=== PATIENT | female | born 1960 | race Caucasian/White ===

== ENCOUNTER 2021-03-29 10:53 | Emergency (ER) | payer BC ==
--- OUTSIDE RECORDS SUMMARY | 2021-03-29 10:58 | XMS REPORT | Continuity of Care Document ---
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 Vallejo MD ALBUMIN LEVEL 2020-08-09 14:37:00 Kely Vallejo MD And erson ALKALINE PHOSPHATASE 2020-08-09 14:37:00 Kely Vallejo ALANINE AMINOTRANSFERASE 2020-08-09 14:37:00 Rich Vallejo MD ASPARTATE AMINOTRANSFERASE 2020-08-09 14:37:00 Melanie Vallejo MD TOTAL PROTEIN 2020-08-09 14:37:00 Kely Vallejo MD And erson FRACTIONATED BILIRUBIN 2020-08-09 14:37:[address] CHEST ABDOMEN PELVIS W 2020-08-08 18:05:00 Pasha Vallejo MD CONTRAST POC CREATININE 2020-08-08 16:54:00 Kely Vallejo MD And erson COMPREHENSIVE METABOLIC PANEL 2020-06-18 16:40:00 Oh, Lorenzo Ferguson HEMOGLOBIN A1C 2020-06-18 16:40:00 Oh, Lorenzo Ferguson LIPID PANEL 2020-06-18 16:40:00 Oh, Lorenzo Ferguson VITAMIN D 25 HYDROXY LEVEL 2020-06-18 16:40:00 Oh, Lorenzo Ferguson THYROID STIMULATING HORMONE 2020-06-18 16:40:00 Oh, Lorenzo Ferguson FREE THYROXINE 2020-06-18 16:40:00 Oh, Lorenzo Ferguson GLUCOSE LEVEL 2020-06-18 16:40:00 Oh, Lorenzo Ferguson ELECTROLYTE PANEL 2020-06-18 16:40:00 Oh, Lorenzo villalta SERUM CREATININE 2020-06-18 16:40:00 Oh, Lorenzo Ferguson .GLOMERULAR FILTRATION RATE 2020-06-18 16:40:00 Oh, Lorenzo Ferguson CALCIUM LEVEL TOTAL 2020-06-18 16:40:00 Oh, Lorenzo Palmer son ALBUMIN LEVEL 2020-06-18 16:40:00 Oh, Lorenzo Ferguson ALKALINE PHOSPHATASE 2020-06-18 16:40:00 Oh, Lorenzo Cade rson ALANINE AMINOTRANSFERASE 2020-06-18 16:40:00 Oh, Lorenzo Ferguson ASPARTATE AMINOTRANSFERASE 2020-06-18 16:40:00 Oh, Lorenzo Ferguson TOTAL PROTEIN 2020-06-18 16:40:00 Oh, Lorenzo Ferguson FRACTIONATED BILIRUBIN 2020-06-18 16:40:00 Oh, Lorenzo Blair derson BLOOD UREA NITROGEN 2020-06-18 16:40:00 Oh, Lorenzo DIALLO Spencer son MRI CERVICAL THORACIC LUMBAR 2020-05-11 14:41:29 Kely Vallejo MD SPINE W WO CONTRAST NM BONE SCAN WHOLE BODY 2020-05-10 15:05:10 Sonia Vallejo MD MRI PELVIS W WO CONTRAST - 2020-05-09 17:06:00 Melanie Vallejo MD MUSCULOSKELETAL CIRCULATING TUMOR CELLS 2020-05-08 17:12:[address] CHEST ABDOMEN PELVIS W 2020-05-04 16:25:35 Mya Vega MD CONTRAST POC CREATININE 2020-05-04 15:00:00 Mya Vega MD COMPLETE BLOOD COUNT W/ 2020-05-04 14:29:00 Mya Vega MD DIFFERENTIAL COMPREHENSIVE METABOLIC PANEL 2020-05-04 14:29:00 Mya Vega MD CANCER ANTIGEN 15-3 2020-05-04 14:29:00 Mya Vega MD And erson Results CBC 2020-05-04 14:29:00 Mya Vega MD MANUAL DIFFERENTIAL 2020-05-04 14:29:00 Mya Vega MD And erson GLUCOSE LEVEL 2020-05-04 14:29:00 Mya Vega MD ELECTROLYTE PANEL 2020-05-04 14:29:00 Mya Vega MD Spencer son SERUM CREATININE 2020-05-04 14:29:00 Mya Vega MD [place] .GLOMERULAR FILTRATION RATE 2020-05-04 14:29:00 Mya Vega MD CALCIUM LEVEL TOTAL 2020-05-04 14:29:00 Mya Vega MD And erson ALBUMIN LEVEL 2020-05-04 14:29:00 Mya Vega MD ALKALINE PHOSPHATASE 2020-05-04 14:29:00 [facility] ALANINE AMINOTRANSFERASE 2020-05-04 14:29:00 Mya Vega ASPARTATE AMINOTRANSFERASE 2020-05-04 14:29:00 Mya Vega MD TOTAL PROTEIN 2020-05-04 14:29:00 Mya Vega MD FRACTIONATED BILIRUBIN 2020-05-04 14:29:00 Mya Vega MD BLOOD UREA NITROGEN 2020-05-04 14:29:00 Mya Vega MD And erson PROTEIN / CREATININE RATIO 2020-05-04 14:03:00 Cornel Brian URINE URINALYSIS WITH MICROSCOPIC 2020-05-04 14:03:00 Cornel Brian MD IF INDICATED Encounters Start End Encounter Admission Attending Care Care Encounter Source Date/Time Date/Time Type Type Clinicians Facility Department ID 2021-03-25 2021-03-25 Outpatient LORENZO CUEVAS [facility] [id number] 12:19:20 23:59:00 Sachin o n 2021-03-25 2021-03-25 Outpatient LORENZO CUEVAS [place] MDA [id number] 14:13:04 15:49:38 Sachin o n 2021-03-21 2021-03-21 Outpatient LUNA VEGA MDA MDA [id number] 11:06:36 11:35:59 MYA Sachin o n 2021-02-22 2021-02-22 Outpatient LUNA EVGA MDA MDA [id number] 10:58:50 11:31:29 MYA Sachin o n 2020-05-09 2020-05-09 Outpatient LUNA ART MDA [id number] 00:00:00 00:00:00 BACILIO Sachin o n 2020-03-08 2020-03-08 Outpatient LUNA CARRANZA MDA MDA [id number] 09:20:19 09:39:57 CAROLENELY Espinalers o n 2020-02-27 2020-02-27 Outpatient LUNA VEGA MDA MDA [id number] 09:02:27 09:45:16 MYA Sachin o n 2020-02-20 2020-02-20 Outpatient LORENZO CUEVAS MDA MDA [id number] 11:39:43 12:14:32 Sachin o ambar Results Test Description Test Time Test Comments Results Result Comments Source Hemoglobin A1c 2021-03-25 18:29:57 Test Item Value Reference Range Interpretation Comme nts A1C (test code = 4632) 5.4 % 4.3-5.6 HbA1c values >=6.5% are diagnostic of diabetes mellitus.Diagno sis should be confirmed by repeat testing. Therapeutic Action suggested: >8.0% HbA1c; Go al oftherapy: <7.0% HbA1c MD FergusonComplete Blood Count w/o [id number] 18:09:28 Test Item Value Reference Range Interpretation Comments WBC (test code = 4.0 K/uL 4.0-11.0 6690-2) RBC (test code = 789-8) 1.92 See_Comment L [Au tomated message] The system [employer] generated this result transmitted ref erence range: 4.00 - 5 .50 M/uL. The refer ence range was not u sed to interpret this result as normal/abnor mal. Hgb (test code = 718-7) 8.7 See_Comment L [Au tomated message] The system [employer] generated this result transmitted ref erence range: 12.0 - 1 6.0 gm/dL. The refe rence range was not u sed to interpret this result as normal/abnor mal. Hct (test code = 25.5 % 37.0-47.0 L 4544-3) MPV (test code = 787-2) 9.5 fL 4.0-10.4 H MCH (test code = 785-6) 45.3 pg 27.0-31.0 H MCHC (test code = 34.1 See_Comment [Automate d message] 786-4) The system [employer] generated this result transmitted ref erence range: 31.0 - 3 6.0 gm/dL. The refe rence range was not u sed to interpret this result as normal/abnor mal. RDW-SD (test code = 68.5 fL 35.1-46.3 H 76082-2) RDW-CV (test code = 14.1 % 12.0-15.5 788-0) Platelet count (test 43 K/uL 140-440 L code = 777-3) INRBC (test code = 0.0 % See_Comment The INRBC (instrument 5974) NRBC) value ref lects the enumeration of nucleated red b lood cells contained in a 200uL sampleof whole blood analyzed by the instrument. Thi s value maydiffer from the NRBC value repo rted in a manual differential,wh ich is based on a 100 cell differential. [Automated mess age] The system [employer] generated this result transmitted ref erence range: <=0.0. T he reference range was not used to int erpret this result as normal/abnormal . Lab Interpretation Abnormal (test code = 72783-9) MD Ferguso[id number] 16:13:04 Test Item Value Reference Range Interpretation Comments Total Cells (test code 100 As pa rt of = 7642) Differential performed at [facility], [address], [address], [place] [address] Neutrophil % (test code 59.0 % 42.0-66.0 The Neutrophil count = 6491) includes Bands. As part of Differe ntial performed at [facility] [address], [address] [facility] [place] [address] Lymphocyte % (test code 39.0 % 24.0-44.0 As p art of = 6194) Differential performed atAC[facility] [address]do[address] [facility] [address] [address] Monocyte % (test code = 1.0 % 2.0-7.0 L As p art of 6422) Differential performed at[facility] Khqp[address] [facility] [address] [place] [address],[place] [address] Basophil % (test code = 1.0 % 0.0-1.0 As p art of 5068) Differential performed at[facility] [employer] Fujf[address] [facility] [address] [address] Neutrophil Abs (test 2.42 K/uL 1.70-7.30 As part of code = 6492) Differential performed at[facility] [employer] Ewrq[address] [facility] [address], [address] [place] [address],[place] [address] Lymphocyte Abs (test 1.60 K/uL 1.00-4.80 As part of code = 6195) Differential performed at[facility] Sise[address] [facility] [address] [place] [address],[place] [address] Monocyte Abs (test code 0.04 K/uL 0.08-0.70 L As p art of = 6423) Differential performed atA [facility] [employer] Bqje[address] [facility] [address] [place] [address],[place] [address] Basophil Abs (test code 0.04 K/uL 0.00-0.10 As p art of = 5069) Differential performed at[facility] [employer] Qwhl[address] [facility] [address] [place] [address],[place] [address] RBC Morph (test code = Present Normal A As pa rt of 6942) Differential performed at[facility] [employer] Tlsx[address] [facility] [address], [address] [place] [address],[place] [address] PLT Morph (test code = Normal Normal As pa rt of 6646) Differential performed at[facility] [employer] Oxcz[address] [facility] [address], [address] [address] Anisocytosis (test code Present Not Present A As p art of = 4811) Differential performed [facility] [employer] [address] [address] Macrocyte (test code = Present Not Present A As pa rt of 6358) Differential performed [facility] [employer] [address] [address] Lab Interpretation Abnormal (test code = 01618-2) MD Ferguson.[id number] 16:13:02 Test Item Value Reference Range Interpretation Comments WBC (test code = 8034) 4.1 K/uL 4.0-11.0 RBC (test code = 6932) 2.18 See_Comment L [Aut omated message] The system [employer] generated this result transmitted ref erence range: 4.00 - 5 .50 M/uL. The refer ence range was not u sed to interpret this result as normal/abnor mal. Hgb (test code = 5898) 9.0 See_Comment L As pa rt of CBC or as an individual orderable testi ng performed at [facility], [address], [place] [address] [Automate d message] The sy stem which generated this result transmit damien reference range : 12.0 - 16.0 gm/dL. T he reference range was not used to int erpret this result as normal/abnormal . Hct (test code = 5860) 27.8 % 37.0-47.0 L As pa rt of CBC or as an individual orderable testi ng performed at [facility], [address], [place] [address] MCV (test code = 6222) 128 fL 82-98 H MCH (test code = 6220) 41.3 pg 27.0-31.0 H MCHC (test code = 6221) 32.4 See_Comment [Au tomated message] The system [employer] generated this result transmitted ref erence range: 31.0 - 3 6.0 gm/dL. The refe rence range was not u sed to interpret this result as normal/abnor mal. RDW-SD (test code = 65.5 fL 35.1-46.3 H 6972) RDW-CV (test code = 14.0 % 12.0-15.5 6971) Platelet count (test 54 K/uL 140-440 L As part of CBC or as code = 6832) an individual orderable testi ng performed at [facility], [address], [place] [address] MPV (test code = 6282) 10.5 fL 4.0-10.4 H INRBC (test code = 0.0 % See_Comment The INRBC (instrument 5974) NRBC) value ref lects the enumeration of nucleated red b lood cells contained in a 200uL sampleof whole blood analyzed by the instrument. Thi s value maydiffer from the NRBC value repo rted in a manual differential,wh ich is based on a 100 cell differential. A s part of CBC testing performed at [facility] [employer] [address], [place] [address] [Automated mess age] The system [employer] generated this result transmitted ref erence range: <=0.0. T he reference range was not used to int erpret this result as normal/abnormal . Lab Interpretation Abnormal (test code = 81315-7) MD Fernandez [id number] 16:00:17 Test Item Value Reference Range Interpretation Comments CA 15-3 (test code = 35.9 U/mL See_Comment H Results greater than 5170) 2400.0 U/mL may not be reliable due to matrix effect w ith extended diluti on as it exceeds the professional employer consultant's recommended wells it. Caution should be exercised when interpreting ragland ch values and done in conjunction wit h clinical context.Testing Performed at [facility], [address], [place] [address] [Automat ed message] The sy stem which generated this result transmit damien reference range : <=25.0. The ref erence range was not u sed to interpret this result as normal/abnor mal. Lab Interpretation Abnormal (test code = 20025-5) MD FergusonCT Chest Abdomen Pelvis with [id number] 22:10:06 No significant interval change in sclerotic bone lesions. Metabolic activity is best assessed with bone scan. Probable post radiation changes at the right lung apex are slightly increased relative to the previous study. Few new small subcentimeter pulmonary nodules including a more elongated nodular density may represent endobronchial filling defects but are nonspecific. Recommend close attention onfollow-up. Other findings as above. Interface, Radiology Results In - 02/04/2021 5:12 PM CDT FULL RESULT:Examination: CT CHEST ABDOMEN PELVIS W CONTRAST, 02/04/2021 2:48 PMClinical History: Infiltrating lobular carcinoma of upper outer quadrant of right female breastSecondary malignant neoplasm of axillary lymph nodeSecondary malignant neoplasm of boneSecondary malignant neoplasm of skinIndication: Breast cancer primary, metastatic to other regionComparison: 11/06/2020Technique: CT of the chest, abdomen, and pelvis was performed with intravenous contrast.Findings: Chest: Likely post radiation changes at the right lung apex are slightly increased relative to the prior study. Few new small subcentimeter pulmonary nodules (37, 77, 84 series 4). More posterior nodular density (77) has an elongated component. These may represent small endobronchial filling defects but are nonspecific. Recommend attention on follow-up. Stable small subcentimeter calcified granuloma in the left upper lobe (42).No enlarged thoracic lymph nodes. Surgical changes at the right axilla. Right mastectomy changes. Degenerative changes in the spine. No significant interval change in 0.9 cm faint sclerotic lesion at T10. This is slightly more prominent than on exam from 05/2019. Recommend close follow-up.Abdomen/Pelvis: Fatty infiltration of the liver. Stable hemangioma in the right liver. Gallbladder is unremarkable. Pancreas, spleen, and adrenals are unremarkable. No hydronephrosis.No enlarged para-aortic or pelvic lymph nodes. Calcification at the uterus may represent a fibroid. No dilated loops of bowel or ascites.No significant interval change in sclerotic lesions at L4 and in the pelvis.IMPRESSION:No significant interval change in sclerotic bone lesions. Metabolic activity is best assessed with bone scan.Probable post radiation changes at the right lung apexare slightly increased relative to the previous study. Few new small subcentimeter pulmonary nodulesincluding a more elongated nodular density may represent endobronchial filling defects but are nonspecific. Recommend close attention on follow- up.Other findings as above.MD FergusonWY Bone Scan Whole [id number] 19:00:28 Since November 05, 2020,1. More conspicuous tracer uptake in the right SI joint superiorly, probably metastasis. Recommend correlation with CT.2. No abnormal tracer uptake to correlate with known scleroticlesion in the left posterior bone, probably treated metastasis. Interface, Radiology Results In - 02/04/2021 2:02 PM CDT FULL RESULT:Examination: Whole-Body Bone Scan, 02/04/2021 1:10 PMClinical History: Breast cancerIndication: Restaging evaluation for osseous metastasisComparison: November 06, 2019Technique: Following the intravenous adminis tration of 22 mCi of technetium-99m MDP, anterior and posterior delayed whole body planar images were acquired.Findings: More conspicuous focus in the right SI joint superiorly, probably representing metastasis. The known sclerotic lesion in the left posterior bone without abnormal tracer uptake. Scattered degenerative change noted. Both kidneys and bladder visualized.IMPRESSION:Since November 05, 2020,1. More conspicuous tracer uptake in the right SI joint superiorly, probably metastasis. Recommend correlation with CT.2. No abnormal tracer uptake to correlate with known sclerotic lesion in the left posterior bone, probably treated metastasis.[facility]ST [facility] [id number] 18:48:03 Test Item Value Reference Range Interpretation Comments POC Crea (test code 1.6 mg/dL 0.6-1.3 H Medicati ons, = 11659-6) especially hydroxyurea or supplements, ragland ch as ascorbate, can interfere with test results causing a falsely and significantly h igher result than exp ected. If a problem is suspected with a patient's resul t, a sample should b e sent to the laborato for confirmatory te sting. Method descript ion: The i-STAT is a n analyzer used f or in vitro quantific ation of various anal ytes in whole blood. The device uses a s jayde disposable cart ridge which contains microfabricated sensors, a calibration parth ution, fluidics system , and a waste chamber . Each test cartridge contains chemic ally sensitive biose nsors on a [email or web address] ip that are config ured to perform spec ific tests. The microfabricated sensors measure analyte concent ration by an electroch emical assay. POC eGFR-AA (test 40 See_Comment L Normal eGF R >= 60 code = 60726-1) mL/min/1.73 m2 The eGFR is calcula damien using the CKD-E PI equation. The e GFR declines with a ge. eGFR <60 mL/min /1.73 m2 is considere d as "decreased" Thi s equation should only be used for pat ients 18 and older. According to th e National Kidney Foundation's dney Disease Outcome Quality Initiat natalia (KDOQI) classification and 2012 Kidney Dis ease Improving Globa l Outcomes (KDIGO ) Clinical Practi ce Guideline, the stage of CKD should b e categorized bas ed on estimated GFR. Stage Description GFR mL/min/1.73 m21 Kidney damage w ith normal or high GFR >=902 Kidney d amage with mild decre ase in GFR 60-893a Mild to moderate dec rease in GFR 45-5 93b Moderate to sev ere decrease in GFR 30-444 Severe decrease in GFR 15-295 Kidney f ailure <15 (or reyna lysis) [Automated mes franny] The system [employer] generated this result transmitted ref erence range: >=60 mL/min/1.73 m2. The reference range was not used to int erpret this result as normal/abnormal . POC eGFR-YANY (test 35 See_Comment L Normal eG FR >= 60 code = 55409-5) mL/min/1.73 m2 The eGFR is calcula damien using the CKD-E PI equation. The e GFR declines with a ge. eGFR <60 mL/min /1.73 m2 is considere d as "decreased" Thi s equation should only be used for pat ients 18 and older. According to th e National Kidney Foundation's dney Disease Outcome Quality Initiat natalia (KDOQI) classification and 2012 Kidney Dis ease Improving Globa l Outcomes (KDIGO ) Clinical Practi ce Guideline, the stage of CKD should b e categorized bas ed on estimated GFR. Stage Description GFR mL/min/1.73 m21 Kidney damage w ith normal or high GFR >=902 Kidney d amage with mild decre ase in GFR 60-893a Mild to moderate dec rease in GFR 45-5 93b Moderate to sev ere decrease in GFR 30-444 Severe decrease in GFR 15-295 Kidney f ailure <15 (or reyna lysis) [Automated mes franny] The system [employer] generated this result transmitted ref erence range: >=60 mL/min/1.73 m2. The reference range was not used to int erpret this result as normal/abnormal . POC Clean Dev (test Yes code = 6672) Performing Lab (test MDA Main Main Ca mpus code = 92992) [facility], [address] [place] [address]; [employer]: Gely Mejía MD Lab Interpretation Abnormal (test code = 97050-4) [facility] Specimen Collection -Bone [id number] 15:20:42 Test Item Value Reference Range Interpretation Comments Flow Cytometry Yes Test performe d (Received) (test by:[facility] ersity code = 8319) of [facility] HarrisonFlow Cytometry [address] [place] [address] Cliffgiovany Ap Link [id number] (test code = 80130) DESEAN (test code = Morning of DESEAN) 12/28/20 or 01/03/21Premedicati on type:->NoneAspira tion laterality:->Unil ateralBiopsy laterality:->Unil ateralProcedure type:->AspiratePr ocedure type:->BiopsyProc edure type:->ClotSelect the Bone Marrow Stains:->GiemsaSe lect the Bone Marrow Stains:->IronSele ct the Bone Marrow Stains:->Reticuli n/Trichrome [facility] CenterCytogenetics Specimen Collection -Bone [id number] 16:27:12 Test Item Value Reference Range Interpretation Comments Ariela Ap Link (test code [id number] = 48071) Cytogenetics (Received) Yes (test code = 8304) DESEAN (test code = DESEAN) Morning of 12/28/20 or 01/03/21Premedication type:->NoneAspiratio n laterality:->Unilate ralBiopsy laterality:->Unilate ralProcedure type:->AspirateProce dure type:->BiopsyProcedu re type:->ClotSelect the Bone Marrow Stains:->GiemsaSelec t the Bone Marrow Stains:->IronSelect the Bone Marrow Stains:->Reticulin/T richrome MD FergusonPeripheral Smear for Bone [id number] 13:36:29 Test Item Value Reference Range Interpretation Comments Peripheral Smear (test code = 4273) PSMEAR MD FergusonBonana marrow aspiration w/ [id number] 13:30:00AIMEE Garcia 12/28/2020 3:05 PM Procedure: Bone marrow aspiration/biopsy Date/Time: 12/28/2020 9:58 AM Provider Information:Performed by: Valentina Jolly, PAAuthorized by: Ulices Dudley MD Integrated Marketing Manager present: yesAssistant: Rosalina TanglerKing yoga instructor used?: yoga instructor not needed Patient Diagnosis:Pre-procedure diagnosis: Macrocytic anemiaPost-procedure diagnosis: unchanged Indication:Indication: evaluation of disease status Anesthesia:Anesthesia: local infiltration and see MAR for detailsPatient anesthetized by: advanced practice providerLocal anesthetic: lidocaine 1% without epinephrineAnesthetic total (ml): 20 Sedation:Patient sedated?: patient not sedated Aspirate Site(s):Laterality: r ightSite location: posterior iliac crestInstrument(s) used: Doretha needleInstruments placed by: advanced practice provider Biopsy Site(s):Laterality: rightSite location: posterior iliac crestInstrument(s) used: Russell needleInstruments placed by: advanced practice provider Dressing:Dressing: compression bandage and gel foam Post-Procedure Patient Assessment:Patient tolerance: wellEstimated blood loss: noneComplications/Observations: no complications Discharge/Disposition:Discharge instructions: verbal, printed discharge instructions given to patient and patient verbalized understandingPatient discharged to: discharge to homeDisposition mode: ambulatory Sample Disposition:Testing performed: flow cytometry, cytogenetics and pathologyResearch samples(s): noAspirate volume obtained (mL) - right: 8Visual assessment for specimen adequacy - right: particlesVisual assessment for specimen adequacy - right: 2.4 (Collected)Specimen integrity - right: fragmented Comments:Hx of radiation tx in 2014 breast and sacrum.Currently on chemo treatment. Reviewed meds and allergies prior to the procedure. Reviewed risks and post instructions. Hemostasis achieved. No bleeding. No complications post procedure.MD FergusonMethylmalonic Acid Quant, [id number] 15:25:25 Test Item Value Reference Range Interpretation Comments MMA 0.3 nmol/mL See_Comment -----ADDITIONAL Quant-[place] INFORMATION---- T (test code his test was de jaquelind and its = 83107-0) performance characteristics determined by [facility] in a manner consistent with CLIArequirement s. This test has not been cleare d or approved bythe U.S. Food and Drug Administration. Test Performed by:[address] [address]X[place] Direct or: Romaine Meneses M.D. Ph. D.; CLIA# [id number] [Au tomated message] The system [employer] generated this result transmit damien reference range: <=0.40. The reference range was not u sed to interpret this result as normal/abnormal. MD FergusonParietal Cell IgG [id number] 00:20:28 Test Item Value Reference Range Interpretation Comments Parietal IgG-Ward 14.9 See_Comment Test Perf ormed by:[place] (test code = 92575-6) [facility] Super i[address] [id number] Super [employer] [place], [place] [address]Csw Director: Guanaco Meneses M.D. Ph. D.; CLIA# [id number] [Au tomated message] The sy stem which generated this result transmitted ref erence range: <=20.0 ( Negative) Units. The refe rence range was not used to interpret this result as normal/abnormal . MD FergusonCopsky [id number] 19:53:48 Test Item Value Reference Interpretation Comments Range Copper Lvl-Ward 1.72 See_Comment H --------ADDITIONA (test code = L 5631-7) INFORMATION---- -This test was developed and its performance characteristics determined by [facility] in a manner consistent with CLIArequirement s. This test has not been cl eared or approved bythe U.S. Food and Drug Administra tion. Test Performed by:Darby seay [facility] [address] [place], [place] [address]Sap Direct or: Romaine Meneses M.D. Ph. D.; CLIA# [id number] [Au tomated message] The sy stem which generated this result transmitted ref erence range: 0.75 - 1.45 mcg /mL. The reference range was not used to interpret th is result as normal/abnormal . Lab Interpretation Abnormal (test code = 85829-4) MD FergusonIntrinsic Factor Blocking [id number] 15:24:58 Test Item Value Reference Range Interpretation Comments IF Ab-Ward (test Negative Negative Positive in 50% of persons code = 08023-0) with pernici ous anemia. Test Performed by:[facility] meQuilibrium ior [address]ier[address] meQuilibrium ior [employer] [place], [place] [address]Fou Director: Guanaco Meneses M.D. Ph. D.; CLIA# [id number] MD FergusonHomocysteine Oyrdv7025-68-02 14:20:02 Test Item Value Reference Range Interpretation Comments Homocysteine (test 12.3 See_Comment [Automat ed code = 5921) message] The system which generated this result transmitted reference range : <=15.0 mcmol/L. The reference range was not used to interpr et this result as normal/abnormal . DESEAN (test code = FASTINGThis lab DESEAN) cannot be scheduled at the following locations due to collection/procces sing restrictions:[facility] DIAG LAB [facility] DIAG LAB [facility] DIAG LAB [facility] MD FergusonReticulocyte Count, Vgxf3798-28-04 13:46:09 Test Item Value Reference Range Interpretation Comments Retic Cnt Auto (test code = 7199) 3.1 % 0.5-1.5 H RETHE (test code = 6973) 42.9 pg 23.2-37.5 H IRF (test code = 5989) 23.9 % 2.6-16.7 H Lab Interpretation (test code = Abnormal 63890-5) MD FergusonPeripheral [facility] [id number] 13:46:08 Test Item Value Reference Range Interpretation Comments Peripheral Smear (test code = 4273) ANGEL FergusonPathology Biopsy Kkyrrctywiungn8253-58-11 16:55:00 Test Item Value Reference Range Interpretation Comments Diagnosis (test code = 34) t6scyFBrRTCfdFV7McH bPHEpz6dqc6XwfARppR JrMCemoFAnnbEsdw81q XI0rN55AU4dQHZrEnK9 LJJgstH5Nxp1GJVeSMS wfRMiH769n8nmr2nhpe HkgXW2wSmcPQNhJAHfH DlzPXOtOwErPW4aWKAo hQ8zVKPma7MfmvWxvts rM52zv11cXoAzjMHnf7 u8pMK7FgalHnpwbUA5J trhGSDvFVx2VZKbN45u LBJ0FdErOWLvEZIlue1 wYVSnjiUdu56dUQj1mS NlsClrn4JaUbZqh9f8y FxwYXJ9 Gross Description (test j1ojfRMrUVGpkTZSXKK code = 8007161629) wMVxhbnNpXHNwbHRwZ3 ZdzsrrAAzkKY1aBR4zm VbbbVJdjBYuHP4MEZPa ZmYxXHBhcGVydzEyMjQ aOGMadEZoiKD8IHArLD 1hcmdsMTgwMFxtYXJnc zJ4JWZjhNJrN0CoCMZe MB0zlhzaAKF5NGlaxZ1 dxqYKYmhlPy7dkQXmoC tcZjFcZmNoYXJzZXQwX ZWoaCujPYAuDVj3rM6V RcaoYVR1UCMZPtxqRJS zAD0Hn8bePYYgaUDvOH S3TDvcoIToDXGvACScW Tk8NSGmKKnufHUdCU1v kSjoWfjuzKznt8BnjZP cXGlkIDUxMDAyIFxcZG EnCT7XUnAwKOQnIcU8Y HWpTZh8XTj2MZ0DWaBv VSMiKSo4Bwv2KfFsRSs 4ZHygDN8ODXioGUZ5KH q4KxF4NPN8TWJkVNAcO iBcXGYgQXJpYWwgXFxm cyAxMCBcXGZiIFxcZmw kKEokD30ekMllmS4zXh pszqIdGAC6FFTjwrGPH lxwbGFpblxlcGljTmVz dERvYzEgDQpcbHRycGF yXGxpbjBccmluMCANCl xsdHJjaFxiXGZzMjAgQ 31yw64qERJbN8LuDSbk HaDgn5zosmOxlW3ghB7 seXBzIHgyOlxiMCAgQ2 4qx1cyhJRes8BdWeC1Z R7nxBAsQSSoy4R1PEBp x5M1CAKcagCxwABblWM dfMNuf8MnjL0kXCWeTU FpYU5mYKPgINFgcY7oU mlsdGVyZWQsIGVudGly HWo1AOB5Ks3mqHGpUAP gchMWVV8vHSmtoc99SH W2f6vorQNfDJoqLpzmf XPwzmI2WRhUIHJRTXcA QbRmUR4tOPwWHsrHWRa JTnwyMTAxNnwxfFVTRV X9NKkwxTddaFr8r6ogn XJxg2t8AEliJPZ0sLdH u2dchOSvXNqhCusocJO amjR6PHlREXVILPpOLf BeTQ7nQAxJNnlOAzG1C hLrVID7XNdTN6ZIbKA3 Cpm2FIz1eZuoHcnszhH jmKCaMgZGkH6igYtlaM 6sjJQbN8gaKlMdEUKMC lxwbGFpblxlcGljTmVz qFZrJaJtrNxuwE05HEB lvQIdZRS3PX7aBAKxwf ieKVEaQISeFGA8WAirq P28zIHuWINmQAMnbWPt nF2DDKMsNDW6TTynnF9 2bHRcBL5KAXYyKXT4UQ UftVKgOLF0QC2mwJ6Qs Q== Disclaimer (test code = f4kylUKdPJRevRRkMzG 9844) dMGBiRQHnj8pbNNCuuQ FuZzEwMzNcZnRuYmpcd TGqZXLxSeZgv3hhc337 pQWfb5gdNILvKcW7lPW fFWAqnSJiZ567XEInMG xby8lvm0ThKPJpuAKkf 0T3FTYAwfhzcDw9oCrx U36gw6X7EhoaT5pyMWO nWPUaC6FzPG8sCWXxXl x4QNW4NHF6QRDvUDWrH 7FlGX5iJOIdrGUwNAv4 n1qzxUkcSTEnAOL1m1h qFTcoxqNjLI4jdl6iyF u1q9nbzbKaWDPyIVFvl BAVFFUxY9DwrIofCf5d qHd5zVloIbsaJDG9Afg 0NA3ugs16npq6aOruBK KpviddZpG5OFeyPKFhu lcbLMj7IQrvDZSkwJU0 ZYRraKDgV2XcVOBdRM7 vujt8WNL8MFfyKDDeBk A7KNWqsBYwTFJkkMlgP Hksv086HBF4UdWiNH2w U1Cws0P4cY2psKSpIPO bdQIhKeTuUBXlii7ziQ TqGKado1BwPQA8awT0q IRofFWcWHUqIU16Bghk j8YuTsfpVCS2OYCbkwJ hv4Rch1qzAnPygbLkM8 qfW7LzENLaCPRpZIJhI gKvjaKcd2Iva2ZlaCDn nPo7d9wzEODxLFPkcZf rm4caRVP1DYQwX8H7aX Oah9mqKJgnKWWzpTI2d iI6THCryERtA8JthY3a TQQlRM5wmkw0u7cyPNW 0UEciDWEzYvC2tzJ0HF BcaGVhZGVyeTcyMFxmb 997ZBZ7XzNaWSKfw5Nw Z6DizDvnP24knJwcP77 iBMTdbNzpcA9joNchkN 5cZjBcZnMyNFxxbFxwb BNuhrfjLDduumD0JVic fzosLEJlBGjfS8ahDzW qWOKzwLdpQXshd7SqLB NaUZCqCrsximV4UDXMv 40vQXZrh9MeVAQppW4w vEHfHBizgaVwuUY5SIy hdmUgYmVlbiBkZXZlbG 0lOLFqHA1ePXXwcyGpv o1cpnUtXYUnFEDlB5Lj cmlzdGljcyBkZXRlcm1 mqtUfGGD7LNYVPS8WRR HpCJPdu94dNQLicVccv I8nrRPqemJkFNYnj0Yk sU2tbWCSBJSrA8kuVS3 qFOmbe1SyvPIdgIJowT K0UPJpg2OiGxGebtGue NAbiDEhJ9KhaRrwI2iq LFJeIPRrazHlvEUkd7O xDUYipAC1sRUpIM0MRd ROa43cOCEfIXEWdfNaW SUgzBlnfQV8ygG9uI0i LiBJZiBhcHBsaWNhYmx lKGGdm224kd0bqaY1TI RaRXBaljocw9LmHLTlD VLpuH67JRPvHYKiwq5w hjpikEGnpqBrC5Uiaee 8nA3oPSWnBTfwWOWiLX ZzMjJcbGFuZzEwMzNca GljaFxmMVxkYmNoXGYx XUcaJ0ovFhOxNbLnGub wYXJ9 [facility] Glucose Lgiynp1896-67-32 18:50:19 Test Item Value Reference Interpretation Comments Range POC Glucose (test 109 mg/dL 70-99 H Capillary blood code = 96969-0) samples, e.g . obtained by fingerstick, darby urena have inaccurate resu lts in patients with decreased perip heral blood flow. Met hod description: Al l results are yvonne sured using Electrochemistr y test methodology. Th e glucose in the sample mixes with the reagents on the test strip. The reac tion produces an ewa ctric current. The am ount of current prod uced is proportional to the glucose concentration i n the blood. PO Sample Type (test Capillary code = 9554) Performing Lab (test [facility] code = 02478) [facility] nical Lab, [address], [facility], [place] [address]; [employer]: Gely Mejía MD Lab Interpretation Abnormal (test code = 91220-3) MD FergusonENDOSCOPY NOTE [id number] 17:46:46LyTerrance ochoa MD - 12/04/2020 12:46 PM CDTFormatting of this note might be different from the or iginal.Patient Name: Rosalia Gauthierender: FemaleMRN: [id number]: 60Procedure Date No Time: 12/04/2020Instrument Name: 3220 COLON - CFProceduralist(s): [facility]ITALrocedure Name:ColonoscopyScope In: 12:48:57 PMScope Out: 1:20:42 PMScope Withdrawal Time 0 hours 12 minutes 49 seconds Total Procedure Duration Time 0 hours 31 minutes 45 seconds Indications: Rectal bleedingMedications: TIVAProcedure Description: Pre-Anesthesia Assessment: - Prior to the procedure, a History and Physical was performed,and patient medications and allergies were reviewed. The risks and benefits of the procedure and the sedation options and risks were discussed with the patient. All questions were answered and informed consent was obtained. Patient identification and proposed procedure were verified by the physician in the pre-procedure area. Prophylactic Antibiotics: The patient does not require prophylactic antibiotics. Prior Anticoagulants: The patient has taken no previous anticoagulant or antiplatelet agents. ASA Grade Assessment: II - A patient with mild systemic disease. After reviewing the risks and benefits, the patient was deemed in satisfactory condition to undergo the procedure. The anesthesia plan was to use TIVA. Immediately prior to administration of medications, the patient was re-assessed for adequacy to receive sedatives. The heart rate, respiratory rate, oxygen saturations, blood pressure, adequacy of pulmonary ventilation, and response to care were monitored throughout the procedure. The physical status of the patient was re-assessed after the procedure. Informed consent was obtained. Throughout the procedure, the patient's blood pressure, pulse, and oxygen saturations were monitored continuously.The Olympus CF-EZ055A ([id number]) adult colonoscope was introduced through the anus and advanced to the cecum, identified by appendiceal orifice and ileocecal valve. The appendiceal orifice and the rectum were photographed. The colonoscopy was performed with some difficulty due to redundancy. The patient tolerated the procedure well. The quality of the bowel preparation was good.Findings: Two polyps were found in the ascending colon. The polyps were 2 to 3 mm in size. These polyps were removed with a jumbo cold forceps. Resection and retrieval were complete.Complications: No immediate complications.Estimated Blood Loss: Estimated blood loss: none.Post Procedure Diagnosis: - Two 2 to 3 mm polyps in the ascending colon, removed with a jumbo cold forceps. Resected and retrieved.Recommendation: - Repeat colonoscopy in 5 years for surveillance. - Patient has a contact number available for emergencies. The signs and symptoms ofpotential delayed complications were discussed with the patient. Return to normal activities tomorrow. Written discharge instructions were provided to the patient. - Resume previous diet. - Continue present medications.Attending Participation: I personally performed the entire procedure.TERRANCE GIRON MD12/04/2020 1:35:33 PMThis report has been signed electronically.Number of Addenda: 0MD AndersonMD COVID-19 (PRINCE-CoV-2) PCR Mazfbypfbrfn7195-86-30 04:17:08 Test Item Value Reference Interpretation Comments Range COVID19 SARS Pre-OR Procedure Indication (test code = 00215) COVID19 SARS Result Not Detected Not Detected (test code = 02530-4) COVID19 SARS SARS-CoV-2 NOT Detected. Interpretation (test Reference Range: Not code = 95490) Detected Methodology: The [employer] RealTime SARS-CoV-2 assay is a qualitative real-time reverse furnace brazer polymerase chain reaction (forming process worker-PCR) test to detect RNA from SARS-CoV-2 in nasal, nasopharyngeal and oropharyngeal swabs from patients with signs and symptoms of infection who are suspected of COVID-19 by their health care provider. The [employer] RealTime SARS-CoV-2 performed on the [employer] is a dual target assay with primers and probes for the RdRp and N genes. Results must be interpreted within the context of all relevant clinical and laboratory findings, and epidemiological risk factors. Positive results are indicative of the presence of SARS-CoV-2 RNA; clinical correlation with patient history and other diagnostic information is necessary to determine patient infection status. Positive results do not rule out bacterial infection or co-infection with other viruses. Negative results do not preclude SARS-CoV-2 infection and should not be used as the sole basis for patient management decisions. The [employer] RealTime SARS-CoV-2 assay is for in vitro diagnostic use under FDA Emergency Use Authorization only. Testing is limited to laboratories certified under the Clinical Laboratory Improvement Amendments of 1988 (CLIA), 42U.S.C. 263a, to perform high complexity tests. The Test was performed by the CLIA-certified, high-complexity Molecular Diagnostics Laboratory (MDL) at [facility] under the Food and Drug Administration (FDA) s Emergency Use Authorization. Factsheet for patients: https://www.mdanderson.org/ AbbottFactSheetPatientsFact sheet for healthcare providers: https://www.mdanderson.org/ AbbottFactSheetHCP Test performed by:[facility] [address] [place] [address] MD FergusonVitamin B12 Delsi5177-25-19 22:00:05 Test Item Value Reference Range Interpretation Comments Vitamin B12 Lvl (test code = 8017) 291 pg/mL 211-946 MD FergusonFolate Zwmcc4541-18-02 21:59:56 Test Item Value Reference Range Interpretation Comments Folate Lvl 9.6 ng/mL 4.8-24.2 Hemolyzed speci mens (test code = with Hemolysis Index 5625) >30.0 (30 mg/dL or visible hemolys is) may cause interference an d give falsely high re sults. DESEAN (test code This lab cannot be = DESEAN) scheduled at the following locations due to collection/procces sing restrictions:[facility] MD FergusonFerritin Gabyz5750-71-02 21:50:05 Test Item Value Reference Range Interpretation Comments Ferritin Lvl (test code = 5608) 875 ng/mL 13-150 H Lab Interpretation (test code = Abnormal 17706-5) MD FergusonGlomerular Filtration [id number] 18:45:55 Test Item Value Reference Range Interpretation Comments eGFR-AA (test code = 37 See_Comment L Normal eGFR: >= 60 8062) mL/min/1.73 m2N ote: The eGFR is calculated usin g the CKD-EPI equatio n. The eGFR declin es with age. eGFR <60 mL/min/1.73 m2 is considered as "decreased". Th is equation should only be used for pat ients 18 and older. According to th e National Kidney Foundation's Ki dney Disease Outcome Quality Initiat natalia (KDOQI) classification and 2012 Kidney Dis ease Improving Globa l Outcomes (KDIGO ) Clinical Practi ce Guideline, the stage of CKD should b e categorized bas ed on estimated GFR. Stage Description GFR mL/min/1.73 m21 Normal or high GFR >=902 M ildly decreased GFR 60-893a Mildly to moder ately decreased GFR 45-593b Moderat mike to severely decreased GFR 30-444 Severely decreased GFR 15-295 Kidney failure < 15 [Automated mess age] The system [employer] generated this result transmit damien reference range : >=60 mL/min/1.7 3 sq. m. The referenc e range was not u sed to interpret th is result as normal/abnormal . eGFR-YANY (test code = 32 See_Comment L Normal eGFR: >= 60 8063) mL/min/1.73 m2N ote: The eGFR is calculated usin g the CKD-EPI equatio n. The eGFR declin es with age. eGFR <60 mL/min/1.73 m2 is considered as "decreased". Th is equation should only be used for pat ients 18 and older. According to th e National Kidney Foundation's Ki dney Disease Outcome Quality Initiat natalia (KDOQI) classification and 2012 Kidney Dis ease Improving Globa l Outcomes (KDIGO ) Clinical Practi ce Guideline, the stage of CKD should b e categorized bas ed on estimated GFR. Stage Description GFR mL/min/1.73 m21 Normal or high GFR >=902 M ildly decreased GFR 60-893a Mildly to moder ately decreased GFR 45-593b Moderat mike to severely decreased GFR 30-444 Severely decreased GFR 15-295 Kidney failure < 15 [Automated mess age] The system [employer] generated this result transmit damien reference range : >=60 mL/min/1.7 3 sq. m. The referenc e range was not u sed to interpret th is result as normal/abnormal . DESEAN (test code = DESEAN) 11/26 AM lab in Main. Prior to PCP appt at 2pm Lab Interpretation Abnormal (test code = 99935-9) MD FergusonElectrolyte [id number] 18:45:54 Test Item Value Reference Range Interpretation Comments Sodium Lvl (test 136 See_Comment [Automated message] code = 7355) The system [employer] generated this result transmit damien reference range : 136 - 145 mEq/L. Th e reference range was not used to interpret this result as normal/abnormal . Potassium Lvl (test 5.0 See_Comment [Automa damien message] code = 6854) The system [employer] generated this result transmit damien reference range : 3.5 - 5.1 mEq/L. Th e reference range was not used to interpret this result as normal/abnormal . Chloride (test code 104 See_Comment [Automa damien message] = 5279) The system [employer] generated this result transmit damien reference range : 98 - 107 mEq/L. Th e reference range was not used to interpret this result as normal/abnormal . CO2 (test code = 27 See_Comment [Automated message] 5227) The system [employer] generated this result transmit damien reference range : 22 - 29 mEq/L. The reference range was not used to interpret this result as normal/abnormal . Anion Gap (test 5 See_Comment [Automated message] code = 9325) The system [employer] generated this result transmit damien reference range : 4 - 14 mEq/L. The reference range was not used to interpret this result as normal/abnormal . DESEAN (test code = 11/26 AM lab in DESEAN) Main. Prior to PCP appt at 2pm MD FergusonCalcium [id number] 18:45:53 Test Item Value Reference Range Interpretation Comments Calcium Lvl (test code = 10.3 mg/dL 8.4-10.2 H 5258) DESEAN (test code = DESEAN) 3/29 AM lab in Main. Prior to PCP appt at 2pm Lab Interpretation (test Abnormal code = 39359-2) MD Ferguson.Serum Xejljipmcc1111-43-73 18:45:52 Test Item Value Reference Range Interpretation Comments Creatinine (test code = 1.70 mg/dL 0.51-0.95 H 5399) DESEAN (test code = DESEAN) 3/29 AM lab in Main. Prior to PCP appt at 2pm Lab Interpretation (test Abnormal code = 66898-8) MD [id number] 18:45:51 Test Item Value Reference Range Interpretation Comments BUN (test code = 5055) 25 mg/dL 6-23 H DESEAN (test code = DESEAN) 29 AM lab in Main. Prior to PCP appt at 2pm Lab Interpretation (test Abnormal code = 51269-5) MD FergusonCT Chest Abdomen Pelvis without Biggjxgj2704-08-75 17:40:511. 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 Post radiation change right upper lobe.3. No suspicious lung nodules.Interface, Radiology Results In - 11/06/2020 11:59 AM CST FULL RESULT:Examination: CT CHEST ABDOMEN PELVIS WO CONTRAST,11/06/2020 11:06 AMClinical History: Infiltrating lobular carcinoma of upper outer quadrant of right female breastIndication: restaging-follow up on lunf nodule, Restaging - followup on lung noduleComparison: CT from 08/08/2020, CT from 05/04/2020, Technique: ct chest, abdomen, pelvis without IV contrast. Findings:Breast: Post right mastectomy without evidence of local recurrence.Lungs: Interstitial thickening in the right upper lobe image 25 series 4 likely representing postradiation change.Hepatobiliary: Stable hemangioma in segment 7 of the liver image 159 series 3. The gallbladder, pancreas,spleen are unremarkable.Gastrointestinal: Stomach, small, and large bowel are normal.Genitourinary: Normal. Lymphatics: No lymphadenopathy.MSK: Sclerotic lesions in the sacrum and left iliac bone are stable on image 255 series 3.. IMPRESSION:1. 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 Post radiation change right upper lobe.3. No suspicious lung nodules.MD FergusonCirculating Tumor [id number] 22:32:17 Test Item Value Reference Range Interpretation Comments CTC (test none seen Cells Reference Range : Breast code = 5245) = < 5 CTC Prostate = < 5 CTC Co lorectal = < 3 CTC Patient s on Doxorubicin the rapy, allow at least 7 days following dosag e before blood draw. Pat ient samples with hi gh levels of Doxorubicin may cause aberrant staini ng of leukocytes as c ytokeratin and CD45 dual p ositive cells. Analytic al Method: Immunomagnetic CTC Selection and E numeration Method Platform : [employer] CELL TRACKS AUTOPREP System CTC Path Int No CTCs were (test code = identified. A 5247) total of 122 __DONNA Morgan images were MD JADE - reviewed.Stainin [id number] ed by: DONNA hopson and image F JAYNE JOHNS MD - quality were [id number] D ate/Time: suitable for 08.12.2020 16:3 2 PM CASHIER WRAPPER interpretation. Transcribed Date/Time: 08.12.2020 16:3 2 PM CSTElectronical ly Signed By: DONNA MEJÍA MD - [id number] on 08.12 16:32 PM MD Le CERVICAL THORACIC LUMBAR SPINE W WO [id number] 20:14:36 Lesions at T10, L4 and S1-S2 are consistent with stable metastases. Additional indeterminate lesionsmentioned above are also stable. Follow-up routine MRI is recommended.Interface, Radiology Results In - 08/09/2020 2:16 PM CST FULL RESULT: Examination: MRI CERVICAL THORACIC LUMBAR SPINE W WO CONTRAST, 08/09/2020 11:10 AMClinical History:Indication: Follow up of 2 sclerotic lesions in the thoracolumbar spine, concerning for metastasis.Comparison: May 11, 2020Technique: Multiplanar MRI of the Cervical Spine, Thoracic Spine and Lumbosacral Spine with and without intravenous contrast using multisequence parameters was performed perdepartmental protocol. Findings: The focus of low signal intensity in the C7 vertebral body on all pulse sequences with a "thorny" border measures 4-5 x 7 mm on series 5 image 7 and is unchanged as compared to August 20, 2018 and likely represents a bone island. No additional worrisome lesions are currently visualized in the cervical spine.The angulated lesion in the T10 vertebral body demonstrating low T1, high T2 signal intensity and enhancement on series 7, 8 and 18 image 11 is larger as compared to May 21, 2018 but unchanged as compared to May 11, 2020. It likely represents a stable metastasis.The enhancing lesion in the L4 vertebral body measures 7 x 8 mm on series 18 image 10,unchanged as compared to May 11, 2020. It was not visualized on August 20, 2018 and is worrisome for a stable metastasis.The sacral metastasis on the right at S1-S2 demonstrates no significant interval change on series 15 images 25-27 no interval development of significant enhancement. Radiation therapy was provided to this metastasis in May 2015.Additionally, no interval changes visualized in the focus of low signal intensity that straddles the left sacroiliac joint on series 15 images 27-29.No interval development of additional suspicious osseous lesions is visualized. No epidural or worrisome leptomeningeal enhancement is visualized.The spinal cord is normal in signal intensity. A disc/osteophyte complex effaces the anterior aspect of the cord at C5/6 on series 6 image 9. CSF is present posterior to the cord. No indication of cord edema.Enhancing lesion in the liver on series 19 image 12 measures 3 x 4.2 cm on series 19 image 12 no significant interval change is suspected as compared to August 20, 2018. It likely represents a hemangioma.IMPRESSION:Lesions at T10, L4 and S1-S2 are consistent with stable metastases. Additional indeterminate lesions mentioned above are also stable. Follow-up routine MRI is recommended.MD [facility]ASCENS[facility] Pelvis with and without Contrast - Musculoskeletal 2020-05-09 19:23:08No evidence of active metastatic disease in the region imaged.Interface, Radiology Results In - 05/09/2020 2:25 PM CDT FULL RESULT:Examination: MRI PELVIS W WO CONTRAST - MUSCULOSKELETAL, 05/09/2020 12:06 PM.Clinical History: Infiltrating lobular carcinoma of upper outer quadrant of right female breastIndication: Assessment of disease status.Comparison: Multiple examinations dating back to 06/05/2014.Technique: Multiplanar multisequence magnetic resonance imaging of the pelvis was performed without and with intravenous administration of contrast.Findings: The patient is status post radiation therapy and the sacrum and pelvis as per radiation treatment planning dated 06/04/2015. Fatty replacement of the sacrum consistent with prior post radiation therapy change. No underlying osteonecrosis or insufficiency fractures. Sclerotic foci the right and left sacrum are less conspicuous when compared to 06/23/2014, consistent with positive therapeutic change.Previously referenced sclerotic foci within the lower lumbar spine pelvis and right femur (series 4, image 22) remain stable over multiple examinations.There is no evidence of new or progressive disease.There is no pelvic adenopathy.IMPRESSION:No evidence of active metastatic disease in the region imaged.MD Ferguson
[2021-03-29 11:43] LABS: Protime INR 1.1
--- NOTE | 2021-03-29 11:48 | RAD REPORT ---
EXAM DESCRIPTION: Vanessa Single View03/29/2021 11:38 am CLINICAL HISTORY: Cough COMPARISON: 2008 FINDINGS: The lungs appear clear of acute infiltrate. The heart is normal size IMPRESSION: No acute abnormalities displayed
[2021-03-29] MEDS ORDERED: NA CHLORIDE 0.9% 1,000 ML ONE (11:52)
[2021-03-29 11:56] LABS: Albumin 2.5 g/dL (3.4-5.0); Bilirubin Direct 1.9 mg/dL (0-0.2); Bilirubin Total 2.8 mg/dL (0.2-1.0); Potassium 3.5 mmol/L (3.5-5.1); Protein, Total 6.6 g/dL (6.4-8.2); Troponin (Emerg Dept Use Only) 0.23 ng/mL (0.0-0.045)
--- NOTE | 2021-03-29 12:04 | RAD REPORT ---
EXAM DESCRIPTION: CT - Head Brain Wo Cont - 03/29/2021 11:42 am CLINICAL HISTORY: Syncope COMPARISON: None. TECHNIQUE: Computed axial tomography of the head was obtained. IV contrast was not requested. All CT scans are performed using dose optimization technique as appropriate and may include automated exposure control or mA/KV adjustment according to patient size. FINDINGS: Beam hardening artifact limits evaluation of portions of the base of the brain. An intracranial bleed is not seen . The ventricles are normal in caliber. No extra-axial fluid collection is noted. Fluid within the sinuses/ mastoids is not seen. IMPRESSION: No acute intracranial abnormality is seen. If patient's symptoms persist MRI of the bra in would be recommended.
[2021-03-29 12:27] LABS: Absolute Lymphocytes (CBC) 0.4 K/uL (0.7-4.9)
[2021-03-29 13:02] LABS: Basophils % 0.8 % (0-1.3); Hematocrit 26.5 % (36.0-45.0); Lymphocytes % 16.8 % (15.3-44.8); MPV 8.3 fL (7.6-11.3)
[2021-03-29 13:26] LABS: Platelet Estimate DECR; White Blood Cell Scan OK (OK)
[2021-03-29 13:27] LABS: Anisocytosis 1+; Blood Morphology Comment NOTED (NOT SEEN); Macrocytosis 2+; Platelets, Giant FEW; Rouleau NOTED
--- NOTE | 2021-03-29 13:32 | RAD REPORT ---
EXAM DESCRIPTION: CT - C Spine Wo Con - 03/29/2021 1:19 pm CLINICAL HISTORY: Syncopal event, fall, headache, neck pain COMPARISON: None. TECHNIQUE: Axial 2 mm thick images of the cervical spine were obtained with sagittal and coronal rec onstruction images generated and reviewed. All CT scans are performed using dose optimization technique as appropriate and may include automated exposure control or mA/KV adjustment according to patient size. FINDINGS: Cervical body height and alignment are normal. Mild C5-6 disc space narrowing seen with mi ld bony foraminal encroachment from uncovertebral joint hypertrophy. No facet joint alignment abnorma lity. There are facet joint degenerative changes present. No fracture or acute bony abnormality. No paraspinal mass or hematoma. Central canal detail is inherently limited on CT imaging. IMPRESSION: Negative CT cervical spine examination for acute finding. C5-6 degenerative change causes mild bony foraminal encroachment.
--- NOTE | 2021-03-29 13:36 | RAD REPORT ---
EXAM DESCRIPTION: CT - Chest Abd Pelvis Wo Con - 03/29/2021 1:19 pm CLINICAL HISTORY: fall falldue to syncopal event, chest and abdomen pain COMPARISON: CTANGIO CHEST FOR PE dated 06/12/2009 TECHNIQUE: Axial 5 millimeter thick images of the chest, abdomen and pelvis were obtained without IV contrast. Oral contrast was administered. All CT scans are performed using dose optimization technique as appropriate and may include automated exposure control or mA/KV adjustment according to patient size. FINDINGS: Subpleural fibrotic changes are present progressive from the 2008 comparison. Findings are more pronounced in the right apex. No acute lung parenchymal process or suspicious lung mass. No pne umothorax or pleural effusion. No chest wall mass or abnormal axillary lymphadenopathy. Mastectomy c hanges are present with numerous clips in the right axilla. Mediastinal and hilar regions show no mas s or lymphadenopathy. No significant cardiac finding. Coronary artery calcifications are present. The liver, spleen and pancreas show no significant findings for non contrast imaging. Gallbladder an d biliary tree are normal. No hydronephrosis or suspicious renal mass. Isodense masses and pyelonephritis cannot be excluded on non contrast imaging. No adrenal abnormalities. No urinary bladder abnormalities. Uterus is atrophi c. Ovaries are atrophic with no adnexal abnormality. No dilated bowel loops or focal ball bowel wall thickening. No free air, free fluid or inflammatory stranding. No hernia, mass or bulky lymphadenopathy. Sclerotic and hypertrophic degenerative changes are present scattered in the pelvis, hip joints and s pine. No acute or pathologic bone process identifiable. IMPRESSION: CT chest, abdomen and pelvis imaging shows no acute or emergent finding. Nonemergent chronic changes are detailed in the body of the report.
[2021-03-29 13:41] LABS: RBC Red Blood Cell Count 2.05 M/uL (3.86-4.86)
[2021-03-29] MEDS ORDERED: PANTOPRAZOLE 40 MG INJ ONE ×2 (14:22→15:31)
--- NOTE | 2021-03-29 14:52 | ER ---
Nurse's Notes [facility] Name: Shazia Gauthier Age: 60 yrs Sex: Female : 1960 Arrival Date: 03/29/2021 Time: 10:55 Bed 26 Private MD: Diagnosis: Anemia, unspecified;Syncope Near;Thrombocytopenia, unspecified;Neutropenia, unspecified;Unspecified jaundice;GI Bleed/ Gastrointestinal hemorrhage, unspecified;Hypotension, unspecified;Weakness;Unspecified kidney failure-ACUTE, ON CHRONIC Presentation: 03/29 10:59 Chief complaint: EMS states: syncopal episode from toilet. pts family called 911, on tr6 EMS arrival pt AOx3. pt reports that she was on the toilet but felt weak and fell, she did hit her head. Coronavirus screen: At this time, unable to obtain information related to travel outside the [place] Ebola Screen: No symptoms or risks identified at this time. Initial Sepsis Screen: Does the patient meet any 2 criteria? HR > 90 bpm. Does the patient have a suspected source of infection? No. Patient's initial sepsis screen is negative. Initial Sepsis Screen: Does the patient have a suspected source of infection? No. Patient's initial sepsis screen is negative. Risk Assessment: Do you want to hurt yourself or someone else? Patient reports no desire to harm self or others. Onset of symptoms is unknown. 10:59 Method Of Arrival: EMS: [facility] tr6 10:59 Acuity: EARNEST 3 tr6 13:03 Acuity: EARNEST 2 iw Triage Assessment: 11:25 General: Appears distressed, uncomfortable, Behavior is calm, cooperative. Pain: tr6 Complains of pain in generalized pain. EENT: No deficits noted. Neuro: Reports a syncopal episode weakness. Cardiovascular: No deficits noted. Respiratory: Parent/caregiver reports the patient having stage 4 lung cancer. GI: Abdomen is round. : No deficits noted. Derm: No deficits noted. Musculoskeletal: Reports weakness in generalized weakness. Historical: - Home Meds: 11:02 Toprol XL 200 mg Oral Tb24 2 tabs nightly [Active]; cetirizine 10 mg oral tab 1 tab tr6 once daily [Active]; gabapentin 300 mg oral Tb24 1 tab every morning [Active]; gabapentin 600 mg oral tab nightly [Active]; duloxetine 60 mg oral CDRS 1 cap once daily [Active]; tramadol 50 mg Oral tab 1 tab q8 [Active]; Pepcid 20 mg Oral tab 1 tab once daily [Active]; Lipitor 10 mg Oral tab 1 tab once daily [Active]; abemaciclib 150 mg oral tab 1 tab 2 times per day [Active]; - Immunization history:: Adult Immunizations up to date. - Social history:: Smoking status: unknown. - Family history:: not pertinent. Screenin:05 Abuse screen: Denies threats or abuse. Denies injuries from another. Nutritional tr6 screening: No deficits noted. Tuberculosis screening: No symptoms or risk factors identified. Fall Risk Fall in past 12 months (25 points). Assessment: 11:20 Reassessment: see triage assessment. tr6 11:28 Neuro: No deficits noted. Level of Consciousness is awake, alert, obeys commands, tr6 lethargic. Cardiovascular: Rhythm is sinus rhythm. 12:50 Reassessment: MD Ferguson at bedside. tr6 14:33 Reassessment: Patient and/or family updated on plan of care and expected duration. Pain tr6 level reassessed. Patient is alert, oriented x 3, equal unlabored respirations, skin warm/dry/pink. pt sleeping. at bedside. Vital Signs: 10:54 BP 107 / 56; Pulse 119; Resp 12; Pulse Ox 95% on R/A; tr6 10:59 BP 107 / 56; Pulse 122; Resp 18; Pulse Ox 94% on R/A; tr6 11:37 Temp 98.1(O); dh3 12:00 BP 86 / 48; Pulse 103; Resp 12; Pulse Ox 95% on R/A; tr6 13:00 BP 85 / 65; Pulse 103; Resp 13; Pulse Ox 97% on R/A; tr6 14:00 BP 90 / 47; Pulse 103; Resp 12; Pulse Ox 95% on R/A; tr6 15:28 BP 100 / 48; Pulse 99; Resp 21; Pulse Ox 96% on 2 lpm NC; ap3 17:03 BP 111 / 50; Pulse 97; Resp 20; Pulse Ox 100% on R/A; ap3 ED Course: 10:55 Patient arrived in ED. ds1 10:59 Ramnanan, Lissette, RN is Primary Nurse. tr6 11:02 Triage completed. tr6 11:03 Te Ferguson MD is Attending Physician. jus 11:05 Patient has correct armband on for positive identification. Fall risk band placed. Bed tr6 in low position. Call light in reach. Side rails up X 1. Side rails up X2. cut order hand on. Pulse ox on. NIBP on. Door closed. Noise minimized. Visitors limited. Lights dimmed. Moved to private room. Warm blanket given. 11:05 No provider procedures requiring assistance completed. Maintain EMS IV. Dressing tr6 intact. Good blood return noted. Site clean \T\ dry. Gauge \T\ site: . 11:10 EKG done, by ED staff, reviewed by Te Ferguson MD. dh3 11:23 Initial lab(s) drawn, by me, sent to lab. dh3 11:38 XRAY Chest (1 view) In Process Unspecified. EDMS 11:42 CT Head Brain wo Cont In Process Unspecified. EDMS 12:28 Notified ED physician of a critical lab result(s). platelet-48,000. sv 13:19 CT Chest Abdomen Pelvis W/O Contrast: no iv/no oral In Process Unspecified. EDMS 13:20 CT C Spine In Process Unspecified. EDMS 13:36 T\T\S collected, blood band applied to patient. dh3 14:36 Arm band placed on right wrist. tr6 14:[address] Ferguson with Valorie from the [facility] transfer center. eb 15:02 connected the medic technician chuck boner from [facility] with Dr. Ferguson for patient eb transfer consultation. 16:38 administrative approval given by Juan Singleton/ patient has been accepted to [facility] eb ICU [id number]/ Dr. Kike Cronin has accepted the patient in transfer/ report to be called to [phone]. 17:02 Harris cath inserted, using sterile technique, 16 Fr., by la, balloon inflated, to ap3 gravity drainage, urine specimen collected. 18:35 Patient transferred, IV remains in place. ap3 Administered Medications: 12:08 Drug: NS 0.9% 500 ml Route: IV; Rate: bolus; Site: left antecubital; tr6 14:05 Follow up: Response: No adverse reaction; IV Status: Completed infusion; IV Intake: tr6 500ml 12:08 Drug: NS 0.9% 1000 ml Route: IV; Rate: 125 ml/hr; Site: left antecubital; tr6 18:34 Follow up: IV Status: Infusion continued upon transfer ap3 14:05 Drug: ProTONIX (pantoprazole) 40 mg Route: IVP; Site: left antecubital; tr6 14:35 Follow up: Response: No adverse reaction tr6 15:22 Drug: ProTONIX (pantoprazole) 40 mg Route: IVP; Site: left antecubital; ap3 17:04 Follow up: Response: No adverse reaction ap3 17:10 Drug: Rocephin (cefTRIAXone) 1 grams Route: IV; Rate: per protocol; Site: left hand; ap3 17:10 Follow up: IV Status: Completed infusion ap3 18:33 Drug: fentaNYL (PF) 25 mcg Route: IVP; Site: left antecubital; ap3 18:34 Follow up: Response: No adverse reaction ap3 18:33 Drug: fentaNYL (PF) 25 mcg Route: IVP; Site: left antecubital; ap3 18:34 Follow up: Response: No adverse reaction; Pain is decreased ap3 18:34 Drug: Zofran (Ondansetron) 4 mg Route: IVP; Site: left antecubital; ap3 18:34 Follow up: Response: No adverse reaction; Nausea is decreased ap3 Point of Care Testing: Blood Glucose: 18:35 Blood Glucose: 125 mg/dL; ap3 Ranges: Intake: 14:05 IV: 500ml; Total: 500ml. tr6 Outcome: 14:52 ER care complete, transfer ordered by MD. luu 18:34 Transferred by ground EMS to [facility], Transfer form completed. ap3 18:34 Condition: good 18:34 Instructed on the need for transfer, Demonstrated understanding of instructions. 18:35 Patient left the ED. ap3 Signatures: Dispatcher [employer] Christina Mcguire RN RN sv Anderson, Corey, MD MD cha Sanford, Marian ds1 Corinne Mott RN RN iw Herrera, Deanna 3 Taylor Soto RN RN ap3 Moriah Ratliff Tiffany, RN RN tr6
--- NOTE | 2021-03-29 14:52 | EDPHYS ---
Physician Documentation [facility] Name: Shazia Gauthier Age: 60 yrs Sex: Female : 1960 Arrival Date: 03/29/2021 Time: 10:55 Bed 26 Private MD: ED Physician Te Ferguson HPI: 03/29 14:29 This 60 yrs old Female presents to ER via EMS with complaints of Syncope. jus 14:29 The patient has experienced near-syncope, felt dizzy, felt faint, felt generally weak. jus Onset: The symptoms/episode began/occurred just prior to arrival. Duration: This was a single episode, that lasted 25 second(s). Context: the episode(s) was witnessed, by family, occurred at home, occurred while the patient was bowel movement/on the toliet. Associated injury: Head/face: Neck:. Associated signs and symptoms: The patient has no apparent associated signs or symptoms. Current symptoms: headache, that is mild. The patient has experienced similar episodes in the past, a few times. Historical: - Home Meds: 11:02 Toprol XL 200 mg Oral Tb24 2 tabs nightly [Active]; cetirizine 10 mg oral tab 1 tab tr6 once daily [Active]; gabapentin 300 mg oral Tb24 1 tab every morning [Active]; gabapentin 600 mg oral tab nightly [Active]; duloxetine 60 mg oral CDRS 1 cap once daily [Active]; tramadol 50 mg Oral tab 1 tab q8 [Active]; Pepcid 20 mg Oral tab 1 tab once daily [Active]; Lipitor 10 mg Oral tab 1 tab once daily [Active]; abemaciclib 150 mg oral tab 1 tab 2 times per day [Active]; - Immunization history:: Adult Immunizations up to date. - Social history:: Smoking status: unknown. - Family history:: not pertinent. ROS: 14:29 Constitutional: Negative for fever, chills, and weight loss, Eyes: Negative for injury, jus pain, redness, and discharge, ENT: Negative for injury, pain, and discharge, Neck: Negative for injury, pain, and swelling, Cardiovascular: Negative for chest pain, palpitations, and edema, Back: Negative for injury and pain, : Negative for injury, bleeding, discharge, and swelling, MS/Extremity: Negative for injury and deformity, Psych: Negative for depression, anxiety, suicide ideation, homicidal ideation, and hallucinations, Allergy/Immunology: Negative for hives, rash, and allergies, Endocrine: Negative for neck swelling, polydipsia, polyuria, polyphagia, and marked weight changes, Hematologic/Lymphatic: Negative for swollen nodes, abnormal bleeding, and unusual bruising. 14:29 Respiratory: Positive for cough. 14:29 Abdomen/GI: Positive for abdominal pain. 14:29 Skin: Positive for pallor. 14:29 Neuro: Positive for weakness. Exam: 14:29 Head/Face: Normocephalic, atraumatic. Eyes: Pupils equal round and reactive to light, jus extra-ocular motions intact. Lids and lashes normal. Conjunctiva and sclera are non-icteric and not injected. Cornea within normal limits. Periorbital areas with no swelling, redness, or edema. ENT: Nares patent. No nasal discharge, no septal abnormalities noted. Tympanic membranes are normal and external auditory canals are clear. Oropharynx with no redness, swelling, or masses, exudates, or evidence of obstruction, uvula midline. Mucous membranes moist. Neck: Trachea midline, no thyromegaly or masses palpated, and no cervical lymphadenopathy. Supple, full range of motion without nuchal rigidity, or vertebral point tenderness. No Meningismus. Chest/axilla: Normal chest wall appearance and motion. Nontender with no deformity. No lesions are appreciated. Respiratory: Lungs have equal breath sounds bilaterally, clear to auscultation and percussion. No rales, rhonchi or wheezes noted. No increased work of breathing, no retractions or nasal flaring. Abdomen/GI: Soft, non-tender, with normal bowel sounds. No distension or tympany. No guarding or rebound. No evidence of tenderness throughout. Back: No spinal tenderness. No costovertebral tenderness. Full range of motion. Female : Normal external genitalia. MS/ Extremity: Pulses equal, no cyanosis. Neurovascular intact. Full, normal range of motion. Psych: Awake, alert, with orientation to person, place and time. Behavior, mood, and affect are within normal limits. 14:29 Constitutional: The patient appears in obvious distress, mildly distressed. 14:29 Cardiovascular: Rate: tachycardic, actual rate is 122 bpm, Rhythm: regular, Pulses: Pulses are 4+ in bilateral radial, brachial, femoral, popliteal, posterior tibial and and dorsalis pedis arteries.. Heart sounds: normal, Edema: 1+ edema to level of left midcalf and right midcalf, JVD: is not appreciated. 14:29 ECG was reviewed by the Attending Physician. 14:43 Abdomen/GI: Inspection: distension, that is mild, Bowel sounds: normal, Palpation: jus soft, Rectal exam: rectal tone normal, Stool: guaiac positive, hemorrhoid(s), are not appreciated, mass, is not appreciated, swelling, is not appreciated, tenderness, is not appreciated, fecal impaction, is not appreciated, the exam is chaperoned by a family member, Liver: no appreciated palpable abnormalities, Hernia: not appreciated. Vital Signs: 10:54 BP 107 / 56; Pulse 119; Resp 12; Pulse Ox 95% on R/A; tr6 10:59 BP 107 / 56; Pulse 122; Resp 18; Pulse Ox 94% on R/A; tr6 11:37 Temp 98.1(O); dh3 12:00 BP 86 / 48; Pulse 103; Resp 12; Pulse Ox 95% on R/A; tr6 13:00 BP 85 / 65; Pulse 103; Resp 13; Pulse Ox 97% on R/A; tr6 14:00 BP 90 / 47; Pulse 103; Resp 12; Pulse Ox 95% on R/A; tr6 15:28 BP 100 / 48; Pulse 99; Resp 21; Pulse Ox 96% on 2 lpm NC; ap3 17:03 BP 111 / 50; Pulse 97; Resp 20; Pulse Ox 100% on R/A; ap3 MDM: 11:03 Patient medically screened. jus 14:56 Differential Diagnosis: cardiac arrhythmia, GI bleed. Data reviewed: vital signs, [facility] nurses notes, lab test result(s), EKG, radiologic studies, CT scan. Data interpreted: surveillance system monitor: rate is 103 beats/min, rhythm is regular, Pulse oximetry: on room air is 95 %. Test interpretation: by ED physician or midlevel provider: ECG, plain radiologic studies. Counseling: I had a detailed discussion with the patient and/or guardian regarding: the historical points, exam findings, and any diagnostic results supporting the discharge/admit diagnosis, lab results, radiology results. 03/29 11:05 Order name: Basic Metabolic Panel [facility] 03/29 11:05 Order name: CBC with Diff; Complete Time: 14:20 [facility] 03/29 11:05 Order name: LFT's; Complete Time: 12:44 [facility] 03/29 11:05 Order name: Magnesium; Complete Time: 12:44 [facility] 03/29 11:05 Order name: NT PRO-BNP; Complete Time: 12:44 [facility] 03/29 11:05 Order name: PT-INR; Complete Time: 12:44 [facility] 03/29 11:05 Order name: Troponin (emerg Dept Use Only); Complete Time: 12:44 [facility] 03/29 11:06 Order name: Basic Metabolic Panel; Complete Time: 12:44 [facility] 03/29 12:56 Order name: Type And Screen; Complete Time: 15:47 [facility] 03/29 13:26 Order name: CBC Smear Scan; Complete Time: 14:20 [facility] 03/29 15:45 Order name: ABO/RH no charge; Complete Time: 15:47 [facility] 03/29 16:26 Order name: SARS-COV-2 RT PCR [facility] 03/29 16:45 Order name: Urine Culture [facility] 03/29 11:05 Order name: XRAY Chest (1 view); Complete Time: 12:44 [facility] 03/29 11:05 Order name: EKG; Complete Time: 11:06 [facility] 03/29 11:05 Order name: Cardiac monitoring; Complete Time: 11:08 [facility] 03/29 11:05 Order name: EKG - Nurse/Tech; Complete Time: 11:08 [facility] 03/29 11:05 Order name: CT Head Brain wo Cont; Complete Time: 12:44 [facility] 03/29 12:56 Order name: CT C Spine; Complete Time: 13:39 [facility] 03/29 12:56 Order name: CT Chest Abdomen Pelvis W/O Contrast: no iv/no oral; Complete Time: 13:39 [facility] 03/29 16:46 Order name: Urine Culture [facility] 03/29 11:05 Order name: IV Saline Lock; Complete Time: 11:08 [facility] 03/29 11:05 Order name: Labs collected and sent; Complete Time: 11:26 [facility] 03/29 11:05 Order name: O2 Per Protocol; Complete Time: 11:08 [facility] 03/29 11:05 Order name: O2 Sat Monitoring; Complete Time: 11: [facility] 03/29 11:05 Order name: Urine Dipstick-Ancillary (obtain specimen); Complete Time: 17:03 [facility] 03/29 13:20 Order name: IV - Large Bore; Complete Time: 14:04 [facility] 03/29 17:02 Order name: Harris; Complete Time: 17:02 ap3 EC:29 Rate is 122 beats/min. Rhythm is regular. QRS [place] is Normal. SD interval is normal. [facility] QRS interval is normal. QT interval is normal. No Q waves. T waves are Normal. No ST changes noted. Clinical impression: LVH and No evidence of ischemia. Interpreted by me. Reviewed by me. Administered Medications: 12:08 Drug: NS 0.9% 500 ml Route: IV; Rate: bolus; Site: left antecubital; tr6 14:05 Follow up: Response: No adverse reaction; IV Status: Completed infusion; IV Intake: tr6 500ml 12:08 Drug: NS 0.9% 1000 ml Route: IV; Rate: 125 ml/hr; Site: left antecubital; tr6 18:34 Follow up: IV Status: Infusion continued upon transfer ap3 14:05 Drug: ProTONIX (pantoprazole) 40 mg Route: IVP; Site: left antecubital; tr6 14:35 Follow up: Response: No adverse reaction tr6 15:22 Drug: ProTONIX (pantoprazole) 40 mg Route: IVP; Site: left antecubital; ap3 17:04 Follow up: Response: No adverse reaction ap3 17:10 Drug: Rocephin (cefTRIAXone) 1 grams Route: IV; Rate: per protocol; Site: left hand; ap3 17:10 Follow up: IV Status: Completed infusion ap3 18:33 Drug: fentaNYL (PF) 25 mcg Route: IVP; Site: left antecubital; ap3 18:34 Follow up: Response: No adverse reaction ap3 18:33 Drug: fentaNYL (PF) 25 mcg Route: IVP; Site: left antecubital; ap3 18:34 Follow up: Response: No adverse reaction; Pain is decreased ap3 18:34 Drug: Zofran (Ondansetron) 4 mg Route: IVP; Site: left antecubital; ap3 18:34 Follow up: Response: No adverse reaction; Nausea is decreased ap3 Point of Care Testing: Blood Glucose: 18:35 Blood Glucose: 125 mg/dL; ap3 Ranges: Critical Glucose Levels:Adult <50 mg/dl or >400 mg/dl <40 mg/dl or >180 mg/dl Disposition Summary: 03/29/21 14:52 Transfer Ordered Transfer Location: Other Acute Care Facility jus Reason: Higher level of care jus Condition: Fair jus Problem: new jus Symptoms: have improved jus Accepting Physician: to [facility](03/29/21 18:35) ap3 Diagnosis - Anemia, unspecified jus - Syncope Near jus - Thrombocytopenia, unspecified jus - Neutropenia, unspecified jus - Unspecified jaundice jus - GI Bleed/ Gastrointestinal hemorrhage, unspecified jus - Hypotension, unspecified jus - Weakness jus - Unspecified kidney failure - ACUTE, ON CHRONIC jus Forms: - Medication Reconciliation Form jus - SBAR form jus Signatures: Dispatcher [employer] EDMS Te Ferguson MD MD cha Prokisch, Amanda RN RN ap3 Lissette Harding RN RN tr6 Corrections: (The following items were deleted from the chart) 14:58 14:52 to [facility] jus 15:35 14:55 CORONAVIRUS+MR.LAB.BRZ ordered. [facility]KY EDMS 18:35 14:58 to [facility] jus ap3
[2021-03-29] MEDS ORDERED: CEFTRIAXONE/SWI 1gm 1 GM/10 ML SYR ONE (17:28)
[2021-03-29] MEDS ORDERED: FENTANYL CITR 100 MCG/2 ML ONE (18:44)
[2021-03-29] MEDS ORDERED: ONDANSETRON 4 MG/2 ML VIAL ONE (18:44)
[2021-03-29 18:47] VITALS: TEMP 98.1
[2021-03-29 18:56] VITALS: BP 111/50; O2SAT 100
== END 2021-03-29 18:35 ==
LOC: ER 10:53
DX: R55 Syncope and collapse (principal); D64.9 Anemia, unspecified; D69.6 Thrombocytopenia, unspecified; K92.2 Gastrointestinal hemorrhage, unspecified; N17.9 Acute kidney failure, unspecified; N18.9 Chronic kidney disease, unspecified; Z20.822 Contact with and (suspected) exposure to COVID-19; D70.9 Neutropenia, unspecified; R17 Unspecified jaundice; I95.9 Hypotension, unspecified; R53.1 Weakness
CPT/HCPCS: 87088; 85025; 87086; 80048; 36415; 86900; 83735; 86850; 85610; 86901; 80076; 87077; 87186; 84484; 83880; 70450; 71250; 72125; 74176; 71045; 51702; 99285; U0003; C9113 ×2; J3010; J0696; J7030; J2405; 93005; 96361; 96374; 96375